=== PATIENT | female | born 1985 | race African-American/Black ===

== ENCOUNTER 2020-05-28 12:54 | Emergency (ER) | payer OTHER ==
[2020-05-28] MEDS ORDERED: METHYLPREDNISOLONE 125 MG INJ ONE (13:28)
[2020-05-28] MEDS ORDERED: ALBUTEROL 2.5 MG/3 ML NEB SOL ONE ×2 (13:29→13:33)
[2020-05-28] MEDS ORDERED: ACETAMINOPHEN 500 MG TAB ONE (13:29)
--- NOTE | 2020-05-28 13:38 | RAD REPORT ---
EXAM DESCRIPTION: RAD - Chest Single View - 05/28/2020 1:29 pm CLINICAL HISTORY: Cough;Fever;SOB Chest pain. COMPARISON: Chest Pa And Lat (2 Views) dated 11/18/2017; CHEST SINGLE VIEW dated 11/30/2013; CHEST SING LE VIEW dated 03/03/2011; CHEST PA AND LAT 2 VIEW dated 09/16/2008 FINDINGS: Portable technique limits examination quality. Opacities are present in the lower lungs, greatest in the left lung base with a trace amount of pleur al effusions suspicious for developing pneumonia. The heart is normal in size. No displaced fractures .
--- NOTE | 2020-05-28 14:48 | ER ---
Nurse's Notes [facility] Name: Ernesto Melendrez Age: 34 yrs Sex: Female : 1985 Arrival Date: 05/28/2020 Time: 12:59 Bed 13 Private MD: Faraz Salazar C Diagnosis: Coronavirus as the cause of diseases classified elsewhere;Pneumonia, unspecified organism Presentation: 05/28 13:05 Chief complaint: Patient states: Fever, SOB, cough, CP since last week. Found out she ll1 was covid positive last Wednesday. Fever up to 101.7 at home. Coronavirus screen: Client denies travel out of the [place] in the last 14 days. chills, cough unrelated to allergies, difficulty breathing, fatigue, shortness of breath, Client presents with at least one sign or symptom that may indicate coronavirus-19. Standard/surgical mask placed on the client. Client reports previous positive COVID test result. Ebola Screen: Patient denies travel to an Ebola-affected area in the 21 days before illness onset. Initial Sepsis Screen: Does the patient meet any 2 criteria? Temp <36.0*C (96.8*F)) or > 38.3*C (100.9*F). HR > 90 bpm. Risk Assessment: Do you want to hurt yourself or someone else? Patient reports no desire to harm self or others. Onset of symptoms was May 20, 2020. 13:05 Method Of Arrival: Ambulatory ll1 13:05 Acuity: GILBERTO 3 ll1 13:36 Initial Sepsis Screen: Does the patient have a suspected source of infection? No. jd3 Patient's initial sepsis screen is negative. CONVEYANCER: 15:22 LMP N/A - Irregular menses jd3 Historical: - Allergies: 13:08 No Known Allergies; ll1 - PMHx: 13:08 Asthma; ll1 - PSHx: 13:08 None; ll1 - Immunization history:: Flu vaccine is not up to date. - Social history:: Smoking status: Patient denies any tobacco usage or history of. Patient uses alcohol, occasionally. only on a social basis. Patient/guardian denies using street drugs. Screenin:08 Abuse screen: Denies threats or abuse. Nutritional screening: No deficits noted. jd3 Tuberculosis screening: No symptoms or risk factors identified. Fall Risk Ambulatory Aid- None/Bed Rest/Nurse Assist (0 pts). Gait- Normal/Bed Rest/Wheelchair (0 pts) Mental Status- Oriented to own ability (0 pts). Total [place] Fall Scale indicates No Risk (0-24 pts). Assessment: 13:07 General: Appears in no apparent distress. uncomfortable, Behavior is calm, cooperative, jd3 appropriate for age. Pain: Complains of pain in chest Quality of pain is described as aching. Neuro: Level of Consciousness is awake, alert, obeys commands, Oriented to person, place, time, situation. Cardiovascular: Reports chest pain, Heart tones present Capillary refill < 3 seconds Patient's skin is warm and dry. Respiratory: Reports shortness of breath at rest cough that is persistent Airway is patent Respiratory effort is even, unlabored, Respiratory pattern is regular, symmetrical, Breath sounds are clear bilaterally. GI: Reports nausea, Patient currently denies abdominal pain. : No signs and/or symptoms were reported regarding the genitourinary system. EENT: No signs and/or symptoms were reported regarding the EENT system. Derm: Skin is intact, Skin is dry, Skin is normal, Skin temperature is warm. Musculoskeletal: Circulation, motion, and sensation intact. Range of motion: intact in all extremities. 14:43 Reassessment: Patient appears in no apparent distress at this time. Patient and/or jd3 family updated on plan of care and expected duration. Pain level reassessed. Patient is alert, oriented x 3, equal unlabored respirations, skin warm/dry/pink. Patient states feeling better. Vital Signs: 13:05 BP 111 / 85; Pulse 111; Resp 18; Temp 101.5; Pulse Ox 99% on R/A; Pain 4/10; ll1 14:44 BP 119 / 83; Pulse 107; Resp 18 S; Pulse Ox 98% on R/A; jd3 15:22 Temp 100.1(O); jd3 ED Course: 12:59 Patient arrived in ED. mr 12:59 Faraz Salazar MD is Private Physician. mr 13:04 [facility] pm1 13:04 José Sharp MD is Attending Physician. pm1 13:05 Lukasz Vasquez, MEHRAN is Primary Nurse. ll1 13:07 Triage completed. ll1 13:08 Arm band placed on Patient placed in an exam room, on a stretcher. ll1 13:08 Patient has correct armband on for positive identification. Bed in low position. Call jd3 light in reach. Side rails up X 1. Pulse ox on. NIBP on. 13:11 Primary Nurse role handed off by Lukasz Vasquez RN jd3 13:11 Carlos Villareal, RN is Primary Nurse. jd3 15:21 No provider procedures requiring assistance completed. Patient did not have IV access jd3 during this emergency room visit. Administered Medications: 13:35 Drug: Tylenol 1000 mg Route: PO; jd3 14:30 Follow up: Response: No adverse reaction jd3 13:35 Drug: MethylPREDNISolone Sodium Succinate 125 mg Route: IM; Site: right deltoid; jd3 14:30 Follow up: Response: No adverse reaction jd3 13:35 Drug: Albuterol 2.5 mg {Note: given 5 mg per verbal order.} Route: Inhalation; jd3 14:30 Follow up: Response: No adverse reaction jd3 14:58 Drug: Rocephin (cefTRIAXone) 1 grams Route: IM; Site: left gluteus; jd3 15:20 Follow up: Response: No adverse reaction jd3 Outcome: 14:48 Discharge ordered by MD. pm1 15:21 Discharged to home ambulatory. jd3 15:21 Condition: stable 15:21 Discharge instructions given to patient, Instructed on discharge instructions, follow up and referral plans. medication usage, Demonstrated understanding of instructions, follow-up care, medications, Prescriptions given X 2. 15:22 Patient left the ED. jd3 Signatures: Vicenta Pedraza SheldonOsmel, DOUGH MIXER HELPER DOUGH MIXER HELPER pm1 Carlos Villareal, RN RN jd3 Lukasz Vasquez, MEHRAN RN ll1 Corrections: (The following items were deleted from the chart) 15:21 13:35 Albuterol 2.5 mg Inhalation jd3 jd3
--- NOTE | 2020-05-28 14:48 | EDPHYS ---
Physician Documentation [facility] Name: Ernesto Melendrez Age: 34 yrs Sex: Female : 1985 Arrival Date: 05/28/2020 Time: 12:59 Bed 13 Private MD: Faraz Salazar C ED Physician José Sharp HPI: 05/28 13:45 This 34 yrs old Black Female presents to ER via Ambulatory with complaints of COVID+, pm1 Fever, Shortness Of Breath. 13:45 The patient or guardian reports cough, flu symptoms. Onset: The symptoms/episode pm1 began/occurred 8 day(s) ago. Severity of symptoms: in the emergency department the symptoms are actually worse. Modifying factors: The symptoms are alleviated by inhaler, albuterol. Associated signs and symptoms: Pertinent positives: chest pain, with cough, fever, Pertinent negatives: diarrhea, sore throat, vomiting. The patient has not experienced similar symptoms in the past. Patient with onset of symptoms last Wednesday. Started with a sore throat, then with cough and fever. Tested for covid on Wednesday and it came back positive. Patient currently just using nebulizer treatment and inhaler as needed. 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 - Social history:: Smoking status: Patient denies any tobacco usage or history of. Patient uses alcohol, occasionally. only on a social basis. Patient/guardian denies using street drugs. ROS: 13:45 Eyes: Negative for injury, pain, redness, and discharge. pm1 13:45 Neck: Negative for injury, pain, and swelling. 13:45 Abdomen/GI: Negative for abdominal pain, nausea, vomiting, diarrhea, and constipation, Back: Negative for injury and pain, MS/Extremity: Negative for injury and deformity, Skin: Negative for injury, rash, and discoloration, Neuro: Negative for headache, weakness, numbness, tingling, and seizure. 13:45 Constitutional: Positive for body aches, fever, Negative for poor PO intake. 13:45 ENT: Positive for sore throat, Negative for drainage from ear(s), ear pain, difficulty swallowing, difficulty handling secretions, hoarseness. 13:45 Cardiovascular: Positive for chest pain, with cough. 13:45 Respiratory: Positive for cough, shortness of breath. Exam: 13:45 Constitutional: This is a well developed, well nourished patient who is awake, alert, pm1 and in no acute distress. Head/Face: Normocephalic, atraumatic. Chest/axilla: Normal chest wall appearance and motion. Nontender with no deformity. No lesions are appreciated. 13:45 Back: No spinal tenderness. No costovertebral tenderness. Full range of motion. Skin: Warm, dry with normal turgor. Normal color with no rashes, no lesions, and no evidence of cellulitis. MS/ Extremity: Pulses equal, no cyanosis. Neurovascular intact. Full, normal range of motion. 13:45 Cardiovascular: Exam negative for acute changes, Rate: normal, Rhythm: regular, Pulses: no pulse deficits are appreciated. 13:45 Respiratory: Exam negative for acute changes, respiratory distress, shortness of breath. 13:45 Neuro: Exam negative for acute changes, Orientation: is normal, Mentation: is normal, Motor: is normal, moves all fours. Vital Signs: 13:05 BP 111 / 85; Pulse 111; Resp 18; Temp 101.5; Pulse Ox 99% on R/A; Pain 4/10; ll1 14:44 BP 119 / 83; Pulse 107; Resp 18 S; Pulse Ox 98% on R/A; jd3 15:22 Temp 100.1(O); jd3 MDM: 13:12 Patient medically screened. pm1 14:47 Data reviewed: vital signs. Data interpreted: Pulse oximetry: on room air is 98 %. pm1 Interpretation: normal. Counseling: I had a detailed discussion with the patient and/or guardian regarding: the historical points, exam findings, and any diagnostic results supporting the discharge/admit diagnosis, lab results, radiology results, the need for outpatient follow up, to return to the emergency department if symptoms worsen or persist or if there are any questions or concerns that arise at home. 14:50 ED course: Shared decision making: Discussed chest x-ray results with patient and pm1 likelihood that the pneumonia is viral, due to covid. Patient with positive covid test on Wednesday. The patient prefers to go home with antibiotics and steroids due to history of asthma. 05/28 13:16 Order name: Flu pm1 05/28 13:16 Order name: Strep pm1 05/28 13:15 Order name: Chest Single View XRAY pm1 05/28 13:39 Order name: RAD; Complete Time: 13:42 EDMS 05/28 13:52 Order name: Group A Streptococcus Rapid Sc; Complete Time: 13:54 EDMS 05/28 14:03 Order name: Influenza Screen (A ; Complete Time: 14:07 EDMS Administered Medications: 13:35 Drug: Tylenol 1000 mg Route: PO; jd3 14:30 Follow up: Response: No adverse reaction jd3 13:35 Drug: MethylPREDNISolone Sodium Succinate 125 mg Route: IM; Site: right deltoid; jd3 14:30 Follow up: Response: No adverse reaction jd3 13:35 Drug: Albuterol 2.5 mg {Note: given 5 mg per verbal order.} Route: Inhalation; jd3 14:30 Follow up: Response: No adverse reaction jd3 14:58 Drug: Rocephin (cefTRIAXone) 1 grams Route: IM; Site: left gluteus; jd3 15:20 Follow up: Response: No adverse reaction jd3 Disposition: 19:00 Co-signature as Attending Physician, José Sharp MD Signing chart for administrative ps1 purposes. Did not see or evaluate patient. Not an endorsement of care. . Disposition: 05/28/20 14:48 Discharged to Home. Impression: Coronavirus as the cause of diseases classified elsewhere, Pneumonia, unspecified organism. - Condition is Stable. - Discharge Instructions: Community-Acquired Pneumonia, Adult, COVID-19. - Prescriptions for Prednisone 20 mg Oral Tablet - take 1 tablet by ORAL route every 12 hours for 10 days; 20 tablet. Zithromax Z- Ralph 250 mg Oral Tablet - take 1 tablet by ORAL route as directed for 5 days Day 1 - take two (2) tablets one time. Day 2, 3, 4 , 5 take one (1) tablet once daily.; 6 tablet. - Medication Reconciliation Form, Thank You Letter, Antibiotic Education, Prescription Opioid Use form. - Follow up: Emergency Department; When: As needed; Reason: Worsening of condition. Follow up: Private Physician; When: 2 - 3 days; Reason: Recheck today's complaints, Continuance of care, Re-evaluation by your physician. - Problem is new. - Symptoms have improved. Signatures: Dispatcher [employer] EDOsmel Burton NP FABRICATOR [employer] ITEM[employer] pm1 Carlos Villareal, RN RN jd3 José Sharp MD MD ps1 Lukasz Vasquez RN RN ll1 Corrections: (The following items were deleted from the chart) 15:22 14:48 05/28/2020 14:48 Discharged to Home. Impression: Coronavirus as the cause of jd3 diseases classified elsewhere; Pneumonia, unspecified organism. Condition is Stable. Forms are Medication Reconciliation Form, Thank You Letter, Antibiotic Education, Prescription Opioid Use. Follow up: Emergency Department; When: As needed; Reason: Worsening of condition. Follow up: Private Physician; When: 2 - 3 days; Reason: Recheck today's complaints, Continuance of care, Re-evaluation by your physician. Problem is new. Symptoms have improved. pm1
[2020-05-28] MEDS ORDERED: CEFTRIAXONE 1000 MG/VIAL ONE (15:03)
[2020-05-28 15:35] VITALS: BP 119/83; O2SAT 98
[2020-05-28 15:38] VITALS: TEMP 100.1
== END 2020-05-28 15:22 | disposition home or self-care (01) ==
LOC: ER 12:54
DX: U07.1 COVID-19 (principal); J12.89 Other viral pneumonia
CPT/HCPCS: 87070; 87081; 87804 ×2; 71045; 96372; 99284; J2930

== ENCOUNTER 2024-12-11 13:34 | Emergency (ER) | payer OTHER ==
--- NOTE | 2024-12-11 15:40 | RAD REPORT ---
EXAM: Chest Pa And Lat (2 Views) HISTORY: 39 years Female COUGH COMPARISON: 05/28/2020 FINDINGS: LUNGS/PLEURA: The lungs are clear. No pleural effusions or pneumothorax. No pulmonary edema. MEDIASTINUM: The mediastinal silhouette is within normal limits CARDIAC: The cardiac silhouette is within normal limits. UPPER ABDOMEN: No significant abnormality. BONES: No acute abnormality. LINES/TUBES/OTHER: N/A IMPRESSION: No evidence of acute cardiopulmonary disease.
[2024-12-11 15:50] LABS: Influenza A Ag Negative; Influenza B Ag Negative; SARS-CoV-2 Antigen Rapid Res Negative (Negative)
--- NOTE | 2024-12-11 16:27 | EDPHYS ---
Physician Documentation [facility] Name: Ernesto Melendrez Age: 39 yrs Sex: Female : 1985 Arrival Date: 12/11/2024 Time: 13:34 Bed 25 Private MD: ED Physician Keith Baron HPI: 12/11 15:55 This 39 yrs old Black Female presents to ER via Ambulatory with complaints of Breathing cp Difficulty, Cough. 15:55 The patient or guardian reports cough, that is intermittent, with no sputum, shortness cp of breath and right mid back pain. 15:55 Onset: The symptoms/episode began/occurred over 1 week ago. Associated signs and cp symptoms: Pertinent negatives: chest pain, diarrhea, fever, vomiting. Severity of symptoms: in the emergency department the symptoms are unchanged. Prescribed Doxycycline antibiotic w/o improvment. 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 - Infectious Disease History:: Denies. - Social history:: Smoking status: Patient denies any tobacco usage or history of. ROS: 16:00 Constitutional: Negative for body aches, chills, fever, poor PO intake, cp 16:00 Eyes: Negative for injury, pain, redness, and discharge, cp 16:00 ENT: Negative for drainage from ear(s), ear pain, difficulty swallowing, difficulty handling secretions, 16:00 Cardiovascular: Negative for chest pain, 16:00 Respiratory: Positive for cough, 16:00 Abdomen/GI: Negative for abdominal pain, vomiting, diarrhea, constipation, 16:00 Back: Positive for pain with movement, of the right mid back, 16:00 Neuro: Negative for altered mental status, dizziness, headache, weakness, 16:00 All other systems are negative, Exam: 16:05 Constitutional: The patient appears in no acute distress, alert, awake, cp non-diaphoretic, non-toxic, well developed, well nourished, 16:05 Head/Face: Normocephalic, atraumatic. cp 16:05 Eyes: Periorbital structures: appear normal, Conjunctiva: normal, no exudate, no injection, Sclera: no appreciated abnormality, Lids and lashes: appear normal, bilaterally, 16:05 ENT: External ear(s): are unremarkable, Ear canal(s): are normal, clear, TM's: dullness, bilaterally, Nose: is normal, Mouth: Lips: moist, Oral mucosa: moist, Posterior pharynx: Airway: no evidence of obstruction, patent, 16:05 Chest/axilla: Inspection: normal, 16:05 Cardiovascular: Rate: tachycardic, Rhythm: regular, Edema: is not appreciated, JVD: is not appreciated, 16:05 Respiratory: the patient does not display signs of respiratory distress, Respirations: normal, no use of accessory muscles, no retractions, labored breathing, is not present, Breath sounds: are clear throughout, no decreased breath sounds, no stridor, no wheezing, 16:05 Abdomen/GI: Inspection: abdomen appears normal, Palpation: abdomen is soft and non-tender, in all quadrants, 16:05 Back: pain, that is mild, of the right mid back, Vital Signs: 13:52 Pulse Ox 99% on R/A; ap3 14:17 BP 153 / 95; Pulse 104; Resp 18; Temp 98.5(O); Pulse Ox 100% on R/A; Weight 84.82 kg; ap3 Height 5 ft. 3 in. ; Pain 4/10; 14:17 Body Mass Index 33.13 (84.82 kg, 160.02 cm) ap3 14:17 Pain Scale: Adult ap3 MDM: 14:22 Medical Screening Exam initiated cp 16:00 Differential diagnosis: bronchitis, flu, URI, pneumonia. cp 16:25 Data reviewed: vital signs, nurses notes, lab test result(s), radiologic studies, plain cp films, and as a result, I will discharge patient. 16:25 Counseling: I had a detailed discussion with the patient and/or guardian regarding the cp historical points, exam findings, and any diagnostic results supporting the discharge/admit diagnosis, lab results, radiology results, to return to the emergency department if symptoms worsen or persist or if there are any questions or concerns that arise at home. 12/11 14:41 Order name: COVID-19 Ag + Flu A+B Ag; Complete Time: 16:09 cp 12/11 14:41 Order name: Group A Streptococcus Rapid; Complete Time: 16:09 cp 12/11 15:52 Order name: Throat Culture EDMS 12/11 14:41 Order name: XRAY Chest Pa And Lat (2 Views); Complete Time: 16:09 cp Administered Medications: No medications were administered Disposition Summary: 12/11/24 16:26 Discharge Ordered Notes: Location: Home cp Problem: an ongoing problem cp Symptoms: have improved cp Condition: Stable cp Diagnosis - Cough cp Followup: cp - With: Private Physician - When: 2 - 3 days - Reason: Worsening of condition Discharge Instructions: - Discharge Summary Sheet cp - Cough, Adult cp Forms: - Medication Reconciliation Form cp - Antibiotic Education cp - Prescription Opioid Use cp - Patient Portal Instructions cp - Leadership Thank You Letter cp Prescriptions: - Symbicort 80-4.5 mcg/actuation Inhalation HFA Aerosol Inhaler - inhale 1 inhalation INHALATION route once for 8-10 days; 1 unit; Refills: 0, cp Product Selection Permitted - Augmentin 875-125 mg Oral Tablet - take 1 tablet ORAL route every 12 hours for 10 days; 20 tablet; Refills: 0, cp Product Selection Permitted - Tessalon Perles 100 mg Oral capsule - take 2 capsule ORAL route every 8 hours As needed; 30 capsule; Refills: 0, cp Product Selection Permitted Addendum: 12/12/2024 20:23 I was immediately available for consultation during this patient's visit. I did not e c2 personally see the patient or discuss the patient with the [facility]. . Signatures: Dispatcher [employer] EDMS Guicho Thompson PA PA cp Prokisch, Amanda, RN RN ap3 Keith Baron MD MD ec2 Corrections: (The following items were deleted from the chart) 12/11 14:41 14:41 Chest Pa And Lat (2 Views)+RAD.RAD.BRZ ordered. EDMS EDMS 14: 14:41 COVID-19 Ag + Flu A+B Ag+I.LAB.BRZ ordered. EDMS EDMS 14: 14:41 Group A Streptococcus Rapid Sc+I.LAB.BRZ ordered. EDMS EDMS
--- NOTE | 2024-12-11 16:27 | ER ---
Nurse's Notes [facility] Name: Ernesto Melendrez Age: 39 yrs Sex: Female : 1985 Arrival Date: 12/11/2024 Time: 13:34 Bed 25 Private MD: Diagnosis: Cough Presentation: 12/11 14:17 Chief complaint: Patient states: she has been heaviness when coughing for approx a week ap3 that got worse last night. patient reports a painful cough as well. patient states she visited her PCP last week and started an antibiotic but is not feeling better. Coronavirus screen: Client presents with at least one sign or symptom that may indicate coronavirus-19. Ebola Screen: No symptoms or risks identified at this time. Initial Sepsis Screen: Does the patient meet any 2 criteria? RR > 20 per min. Does the patient have a suspected source of infection? No. Patient's initial sepsis screen is negative. Risk Assessment: Do you want to hurt yourself or someone else? Patient reports no desire to harm self or others. Onset of symptoms was December 05, 2024. 14:17 Method Of Arrival: Ambulatory ap3 14:17 Acuity: GILBERTO 3 ap3 Triage Assessment: 14:20 General: Appears in no apparent distress. Behavior is calm, cooperative, appropriate ap3 for age. Pain: Complains of pain in chest Aggravated by coughing. Neuro: Level of Consciousness is awake, alert, obeys commands, Oriented to person, place, time, situation, Appropriate for age. Cardiovascular: Patient's skin is warm and dry. Respiratory: Reports shortness of breath cough that is pain with cough Onset: The symptoms/episode began/occurred gradually, the patient has mild shortness of breath. 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 - Infectious Disease History:: Denies. - Social history:: Smoking status: Patient denies any tobacco usage or history of. Screenin:20 [facility] ED Fall Risk Assessment (Adult) History of falling in the last 3 months, ap3 including since admission No falls in past 3 months (0 pts) Confusion or Disorientation No (0 pts) Intoxicated or Sedated No (0 pts) Impaired Gait No (0 pts) Mobility Assist Device Used No (0 pt) Altered Elimination No (0 pt) Score/Fall Risk Level 0 - 2 = Low Risk Oriented to surroundings, Maintained a safe environment, Educated pt \T\ family on fall prevention, incl call for assistance when getting out of bed, Assessed \T\ reinforced patient's understanding of fall precautions, Hourly rounding (assess needs \T\ fall precautionary measures) done, Used ambulatory aids as needed (educated on \T\ assisted with). Abuse screen: Denies threats or abuse. Nutritional screening: No deficits noted. Tuberculosis screening: No symptoms or risk factors identified. Assessment: 14:20 Respiratory: Airway is patent Respiratory effort is even, unlabored. ap3 15:10 Reassessment: Patient appears in no apparent distress at this time. Patient and/or jb4 family updated on plan of care and expected duration. Pain level reassessed. Patient is alert, oriented x 3, equal unlabored respirations, skin warm/dry/pink. 16:30 Reassessment: Patient appears in no apparent distress at this time. Patient and/or jb4 family updated on plan of care and expected duration. Pain level reassessed. Patient is alert, oriented x 3, equal unlabored respirations, skin warm/dry/pink. Vital Signs: 13:52 Pulse Ox 99% on R/A; ap3 14:17 BP 153 / 95; Pulse 104; Resp 18; Temp 98.5(O); Pulse Ox 100% on R/A; Weight 84.82 kg; ap3 Height 5 ft. 3 in. ; Pain 4/10; 14:17 Body Mass Index 33.13 (84.82 kg, 160.02 cm) ap3 14:17 Pain Scale: Adult ap3 ED Course: 13:38 Patient arrived in ED. cj3 13:50 Guicho Thompson PA is PHCP. cp 13:50 Keith Baron MD is Attending Physician. cp 14:19 Triage completed. ap3 14:21 Arm band placed on right wrist. ap3 15:15 XRAY Chest Pa And Lat (2 Views) In Process Unspecified. EDMS 15:23 Group A Streptococcus Rapid Sent. jb4 15:23 COVID-19 Ag + Flu A+B Ag Sent. jb4 16:50 No provider procedures requiring assistance completed. Patient did not have IV access jb4 during this emergency room visit. Administered Medications: No medications were administered Outcome: 16:26 Discharge ordered by MD. cp 16:50 Discharged to home ambulatory, jb4 16:50 Condition: stable 16:50 Discharge instructions given to patient, Instructed on discharge instructions, follow up and referral plans. medication usage, Demonstrated understanding of instructions, follow-up care, medications, Prescriptions given X 3, 17:01 Patient left the ED. aa5 Signatures: Dispatcher [employer] EDMS Felisa Law RN RN aa5 Guicho Thompson PA PA cp Bryson, James, RN RN jb4 Reina Hernandez RN RN ap3 Brandy Escobar cj3 Corrections: (The following items were deleted from the chart) 23:34 16:50 Discharge instructions given to patient, Instructed on discharge instructions, jb4 follow up and referral plans. Demonstrated understanding of instructions, follow-up care, jb4
[2024-12-11 17:25] VITALS: BP 153/95; TEMP 98.5; O2SAT 100
== END 2024-12-11 17:01 | disposition home or self-care (01) ==
LOC: ER 13:34
DX: R05.9 Cough, unspecified (principal); Z11.52 Encounter for screening for COVID-19
CPT/HCPCS: 36415; 71046; 87070; 87428; 99283